=== PATIENT | female | born 1965 | race Caucasian/White ===

== ENCOUNTER 2022-12-20 14:17 | Outpatient (CLI) | payer BC, SELFPAY ==
[2022-12-20 17:32] LABS: Chloride* 101 mmol/L (96-114); Potassium* 3.4 mmol/L (3.6-5.1); Sodium* 137 mmol/L (135-149)
[2022-12-20 17:34] LABS: Cholesterol* 130 mg/dL (90-199); Creatinine* 0.7 mg/dL (0.5-1.5); Estimated Glomerular Filt Rate 100 ml/min
[2022-12-20 17:35] LABS: Blood Urea Nitrogen* 16 mg/dL (7-30); Calcium* 9.4 mg/dL (8.4-10.6); Carbon Dioxide* 28 mmol/L (20-32); Glucose* 147 mg/dL (60-115); Triglycerides* 220 mg/dL (40-149)
[2022-12-20 17:36] LABS: HDL Cholesterol* 37 mg/dL (>=50); LDL Cholesterol Calculated 49 mg/dL (<100)
[2022-12-20 18:00] LABS: Thyroid Stimulating Hormone* 0.585 uIU/mL (0.270-4.20)
== END 2022-12-20 14:18 | disposition home or self-care (01) ==
PROVIDERS: PCP Family Medicine; Visit Provider Family Medicine
DX: I10 Essential (primary) hypertension (principal); E78.5 Hyperlipidemia, unspecified; E03.9 Hypothyroidism, unspecified; E21.3 Hyperparathyroidism, unspecified
CPT/HCPCS: 80048; 80061; 82310; 83970; 84443

== ENCOUNTER 2023-05-15 14:55 | Outpatient (CLI) | payer BC, SELFPAY ==
--- NOTE | 2023-05-15 15:20 | CRLHL7_ITS ---
For Patients: As a result of the Century Cures Act, medical imaging exams and procedure reports are released immediately into your electronic medical record. You may view this report before your referring provider. If you have questions, please contact your health care provider. BILATERAL SCREENING MAMMOGRAM WITH COMPUTER-AIDED DETECTION AND TOMOSYNTHESIS TECHNIQUE: CC and MLO views were obtained. These mammographic images have been obtained using full-field digital technique. These mammographic images were interpreted with the benefit of computer-aided detection. Breast Tomosynthesis was used in this interpretation. COMPARISON FILM: 12/20/21, 11/09/20. FINDINGS: There are scattered areas of fibroglandular density IMPRESSION: There is no radiographic evidence for malignancy. ASSESSMENT: BI-RADS Category 1: Negative RECOMMENDATION: Routine screening mammogram in 1 year. A lay language report of this examination will be provided to the patient. Segun George M.D. Diagnostic Radiologist [email or web address] MARTITA/Dictated by: Segun George MD @ 05/23/2023 8:20:00 AM (Electronically Signed)
== END 2023-05-15 14:56 | disposition home or self-care (01) ==
LOC: MAMMO 14:56
PROVIDERS: PCP Family Medicine; Visit Provider Obstetrics & Gynecology
DX: Z12.31 Encounter for screening mammogram for malignant neoplasm of breast (principal)
CPT/HCPCS: 77063; 77067

== ENCOUNTER 2023-09-12 13:55 | Outpatient (CLI) | payer BC, SELFPAY | END 2023-09-12 13:56 | disposition home or self-care (01) | PROVIDERS: PCP Family Medicine; Visit Provider Family Medicine | DX: Z01.818 Encounter for other preprocedural examination (principal); E53.8 Deficiency of other specified B group vitamins; E11.9 Type 2 diabetes mellitus without complications; E78.2 Mixed hyperlipidemia; E66.9 Obesity, unspecified; E03.9 Hypothyroidism, unspecified; I10 Essential (primary) hypertension | CPT/HCPCS: 80048; 80061; 82607; 84443 ==

== ENCOUNTER 2023-09-23 09:20 | Day surgery (SDC) | payer BC, SELFPAY ==
[2023-09-23] VITALS (19 sets, daily range): BP systolic 109–148; BP diastolic 67–86; PULSE 69–106; RESP 14–20; TEMP 36.3–37.3; O2SAT 95–100; BMI 26.1
[2023-09-23 09:54] LABS: Hemoglobin* 13.3 gm/dL (12.0-16.0)
[2023-09-23 10:08] LABS: Creatinine* 0.7 mg/dL (0.5-1.5); Est. Creatinine Clearance* 87.29; Estimated Glomerular Filt Rate 100 ml/min
--- NOTE | 2023-09-23 10:13 | P.PCN_ITS ---
Procedure Note Time Seen by Provider: 13:59 Date Seen: 09/23/23 Date of procedure: 09/23/23 Will [facility] bill your pro fee for this procedure?: Yes Procedure: Preoperative diagnosis: 58-year-old 2 para 2 with uterine prolapse and rectocele. Postoperative diagnosis: Same Procedure: Total laparoscopic hysterectomy, bilateral salpingo oophorectomy, lysis of adhesions, posterior (rectocele) repair, diagnostic cystoscopy. Anesthesia: General endotracheal, local Surgeon: Shraddha Benson MD Assist: Rosalie Ruelas MD Estimated blood loss: 100 mL. IV Fluid: 2000 mL Urine output: 450 mL clear urine at the end of the procedure Drains: Adam to gravity Specimen: Uterus, bilateral fallopian tubes and bilateral ovaries to pathology. Findings: On exam under anesthesia: The uterus was anteverted, approximately 8 week size, mobile without nodularity or masses palpable. Grade 2-3 uterine prolapse, grade 3-4 cystocele. After the uterus was removed and the vaginal cuff repaired was noted to have a grade 3 rectocele with a small enterocele. No remaining cystocele after hysterectomy. Adnexa without mass or fullness palpable. On laparoscopy: Normal appearing uterus, fallopian tubes, and ovaries. Appendix and liver edge appeared normal. Procedure: May was taken to the operating room where general anesthetic was found to be adequate. She was placed in the dorsal lithotomy position and an exam under anesthesia was performed with findings stated above. She was then prepped and draped in a normal sterile manner. A Adam catheter was placed. A bivalve speculum was placed in the vaginal canal. A long Allis clamp was placed on the anterior lip of the cervix, in the uterus sounded to 8 cm. A extra large VCare uterine manipulator was then placed. The Allis clamp and speculum were removed from the cervix. Attention was then turned to performing the laparoscopic portion of the procedure. All incisions were infiltrated with 0.50% Marcaine prior to incising the skin. A vertical, infraumbilical 1 cm incision was made. An 11 mm trocar was then placed under direct visualization. The abdomen was then insufflated with CO2 gas to a pressure of 15 mm of mercury. Two, pelvic ports were then placed approximately 3-4 finger breaths medial to the ischial crests. The trocar in the RLQ = 5mm, LLQ = 11mm. These were placed under direct visualization. Attention was then turned to performing the hysterectomy. The right ureter was visualized in the normal position prior to start of the procedure. The sigmoid colon was adherent to the left pelvic sidewall and colonic adipose tissue made it impossible to visualize the left ureter. The left infundibulo-pelvic ligament identified and doubling cauterized and divided with the PowerSeal dissecting forceps. Additional pedicles with formed and ligated using the dissecting, PowerSeal blunt tip dissecting forceps. The left side of the hysterectomy was performed using the PowerSeal dissecting forceps. The 1st pedicles were starting with the broad ligament that was cauterized and and bisected. In sequence show pedicles were formed to divide the utero-ovarian ligament. Then sequential pedicles were made through the broad ligament. The posterior leaf of the broad ligament was then divided and sequential pedicles carried down to the level of the VCare cup. The anterior leaf of the broad ligament was then divided down to the level of the anterior aspect of the VCare cup and a bladder flap created. The uterine vessels were then skeletonized. The uterine vessels were then cauterized and divided. Then excess tissue was cleared over the top of the VCare cup using the dissecting forceps. The right salpingo-oophorectomy and right side of the hysterectomy were then performed in a similar manner. The Ligasure Valleylab pen with the spatula attachment was then used to perform the colpotomy incising around the VCare cup. The uterus was removed and the fundus placed in the vaginal canal to maintain insufflation. The vaginal cuff was then reapproximated using 2-0 V lock suture in a running manner. All the pedicles and vaginal cuff were then closely visualized and hemostasis obtained with bipolar cautery using the PowerSeal dissecting forceps or the Cyveralab pen with the spatula. The the uterus, tubes and ovaries were removed from the vaginal canal and sent to pathology. The Adam catheter was briefly removed. A diagnostic cystoscopy was performed using normal saline as the insufflation medium. The dome of the bladder was noted to be without injury and no evidence of any sutures from the vaginal cuff causing injury. Normal urine flow was noted through both ureteral orifices. Fluorescein IV was used to visualize the urine more easily. The Adam catheter was then replaced. Attention was then returned to the abdomen where hemostasis was verified. The CO2 pressure decreased to 8mmHG and hemostasis verified. The fascia in the LLQ incision was approximated with 0-Vicryl suture using the Vj Thomasen fascial closure device. This was closed under direct visualization with the laparoscope. The fascia in the umbilical incision was reapproximated using 0 Vicryl on a UR 6 needle. All trocars were removed under direct visualization. CO2 gas was allowed to escape the infraumbilical port prior to its removal. All skin incisions were re-approximated using 4-0 Monocryl in a running subcuticular manner, Exofin skin adhesive gel and adhesive bandages placed. Attention was turned to performing the posterior repair. An Allis clamp was placed at the apex of the posterior repair in the midline of the vaginal mucosa posteriorly, 2 Allis clamps were placed in the posterior introitus approximately 1 cm within the introitus. 1% lidocaine with epinephrine was instilled between the 2 horizontal clamps and in the midline to the apical clamp. A horizontal incision was made between the 2 most proximal Allis clamps and a horizontal midline incision was made from the apex clamp to the midline horizontal incision. The vaginal mucosa was then undermined with Metzenbaum scissors and the vaginal fascia was mobilized from the mucosa using a Ray-Matt sponge. The lateral vaginal fascia was then reapproximated using 2 0 Vicryl interrupted sutures. The excess mucosal tissue was removed and the remaining incision reapproximated using 3-0 Vicryl in a running locked manner. Hemostasis verified . A vaginal pack was placed. The patient tolerated this procedure well. Sponge, lap and instrument counts were correct x2 at the end of the procedure and the patient was taken to the recovery area in stable condition. The patient received 2 gm IV ancef prior to the start of the procedure. Anesthesia: GETA and local Surgeon: Shraddha Benson MD Private Eye: Rosalie Ruelas Estimated blood loss (mL): 100 IV fluids (mL): 2,000 Urine output (mL): 450 Pathology: specimen obtained, sent to pathology Condition: stable Disposition: PACU
--- NOTE | 2023-09-23 10:20 | W.PM.H&PU ---
History & Physical Update History & Physical Update H&P Reviewed and patient assessed: No changes noted
[2023-09-23] MEDS: SODIUM CHLORIDE 0.9 % (FLUSH) 10 ML SYRINGE IVF (10:30)
[2023-09-23] MEDS: LACTATED RINGERS 1000 ML 1,000 ML 100 ML IV ×3 (10:30→13:48)
[2023-09-23] MEDS: CEFAZOLIN 2 GM INJ IVP (11:20)
--- NOTE | 2023-09-23 11:26 | W.ANESCHARGE ---
Anesthesia Charges Start Date/Time Anesthesia Start Date: 09/23/23 Anesthesia Start Time: 11:08 Stop Date/Time Anesthesia Stop Date: 09/23/23 Anesthesia Stop Time: 14:20
--- NOTE | 2023-09-23 11:26 | W.PM.NB ---
Nerve Block Nerve Block Time Seen by Provider: 11:12 Date Seen: 09/23/23 Type of block requested by surgeon for post-operative analgesia: TAP Side: bilateral Time out performed: Yes Verification of patient name: Yes Verification of date of : Yes Site marking: site marked Name of person performing procedure: Karel Continuous monitoring Was continuous monitoring of O2 sat, B/P, vice president research, recorded every 15 minutes?: Yes Procedure Checklist: sterile prep, needles and gloves Ultrasound guided. Images saved: Yes Medications given in 5ml increments after negative aspiration: Marcaine %: 0.25 mL: 30 Needle gauge: 20 and Exparel mL: 10 Patient tolerated procedure well: Yes Additional comments: Needle noted adjacent to nerve Block Charges Block Charge (with Pro Fee): TAP Bilateral Use of Ultrasound Machine for Block: Yes- US Guidance/pain block
[2023-09-23] MEDS: BUPIVACAINE 0.5% 30 ML INJECTION (11:46)
[2023-09-23] MEDS: LACTATED RINGERS 1000 ML 1,000 ML 125 ML IV (13:48)
--- NOTE | 2023-09-23 14:07 | SUR.OPER ---
urinary catheter charted removed in OR accidentally, ray catheter reactivated at end of case
--- NOTE | 2023-09-23 14:23 | W.ANESCHARGE ---
Anesthesia Charges Start Date/Time Anesthesia Start Date: 09/23/23 Anesthesia Start Time: 11:08 Stop Date/Time Anesthesia Stop Date: 09/23/23 Anesthesia Stop Time: 14:20
[2023-09-23] MEDS: HYDROmorphone 0.5 mg/0.5 ml inj IVP (15:38)
[2023-09-23] MEDS: KETOROLAC 30 MG/ML inj IVP (20:10)
[2023-09-23] MEDS: MONTELUKAST 10 MG TABLET PO (21:31)
[2023-09-23] MEDS: ATORVASTATIN 10 MG TABLET 20 MG PO (21:31)
[2023-09-24] VITALS: BP 123/71; PULSE 106; RESP 14; TEMP 37; O2SAT 93
[2023-09-24] MEDS: KETOROLAC 30 MG/ML inj IVP ×2 (02:04→07:57)
[2023-09-24 04:44] VITALS: BP 110/67; PULSE 92; RESP 16; TEMP 36.8; O2SAT 94
[2023-09-24] MEDS: ACETAMINOPHEN 500 MG TABLET 1000 MG PO ×2 (04:54→10:54)
--- NOTE | 2023-09-24 07:31 | SUR.OPER ---
Estrogen Cream applied to vaginal packing on 09/23/[address] Benson. Unable to document in JAN, billed by pharmacy.
[2023-09-24 07:41] VITALS: BP 124/74; PULSE 89; RESP 16; TEMP 36.9; O2SAT 98
[2023-09-24] MEDS: LEVOTHYROXINE 75 MCG TABLET PO (07:58)
[2023-09-24] MEDS: hydroCHLOROthiazide 12.5 MG CAPSULE PO (07:58)
[2023-09-24] MEDS: LORATADINE 10 MG TABLET PO (07:59)
[2023-09-24] MEDS: LOSARTAN POTASSIUM 50 MG TABLET 100 MG PO (07:59)
--- NOTE | 2023-09-24 08:25 | PC.NURSE ---
Vaginal packing removed by . Patient tolerated well.
--- NOTE | 2023-09-24 08:32 | PM.GYNDS1 ---
DS: Providers Provider Time Seen by Provider: 08:15 Date Seen: 09/24/23 Date of admission: 09/23/23 Primary care physician: Segun Brown MD Admitting Clinician: Shraddha Benson MD Attending Physician on discharge: Rosalie Ruelas MD Date of Discharge: 09/24/23 DS: Diagnosis Discharge Diagnosis (1) S/P hysterectomy with oophorectomy: Status: Acute Problem details: TLH, BSO with diagnostic cystoscopy and rectocele repair CONSTRUCTION HELPER-Discharge Summary Hospital Course Hospital Course Narrative: Patient is a 58 year old admitted on 09/23/23 following total laparoscopic hysterectomy, bilateral salpingo oophorectomy, diagnostic cystoscopy, and rectocele repair. Indication for surgery: Uterine prolapse and rectocele. Intraoperative findings were notable for: Exam under anesthesia demonstrated 8 week size uterus with good mobility, grade 2-3 uterine prolapse, and a grade 3-4 cystocele. After the uterus was removed, examination revealed no evidence of cystocele, grade 3 rectocele and a small enterocele. On laparoscopy, uterus, fallopian tubes, ovaries, and appendix were all normal in appearance. She had an uncomplicated surgery. Postoperative course has been uneventful. Vitals have been stable. She has remained afebrile. Today, on postoperative day 1, she reports the pain is well controlled without narcotics. She has been able to ambulate without difficulty. She has had a little bit of right shoulder discomfort. She is tolerating regular diet. She is passing flatus. Adam catheter has been removed, and she is voiding without difficulty. Had a small amount of perineal discomfort with wiping. Time Spent with Patient Time attestation: Total time spent providing and/or coordinating discharge services: Time spent: Less than 30 minutes CONSTRUCTION HELPER - Exam Physical Exam: Vital signs: Temp Pulse Resp BP Pulse Ox O2 Del Method 98.5 F 89 16 124/74 98 Room Air 09/24/23 07:41 09/24/23 07:41 09/24/23 07:41 09/24/23 07:41 09/24/23 07:41 09/24/23 07:41 Constitutional: Constitutional: no acute distress Routine HEENT Exam: Head: Present normal inspection Routine Neck Exam: NECK: Present supple Routine Respiratory Exam: Respiratory: Present CTA bilaterally; Absent crackles, rhonchi or wheezes Routine Cardiovascular Exam: Cardiovascular: Present RRR; Absent murmur Routine Abdominal Exam: Abdominal: Present normal bowel sounds and soft; Absent distended or tenderness Comments: Laparoscopic incision sites are clean, dry, and intact, without erythema or ecchymoses. Routine Exam: Comments: Perineal repair is intact. No erythema or swelling noted. Vaginal packing was removed without difficulty. Routine Extremities Exam: Extremities: Present normal inspection; Absent calf tenderness or pedal edema Routine Psychiatric Exam: Psychiatric: Present normal affect CONSTRUCTION HELPER - DS: Data Data Completed and Pending Labs on day of discharge: Labs from last 24 hours 09/23/23 09:44 Hgb 13.3 Creatinine 0.7 Estimated Creat Clear 87.29 Estimated GFR 100 Blood Type O Positive Antibody Screen NEGATIVE Procedures Procedures: Procedures Operation Date: 09/23/23 10:20 Actual Procedure Side Surgeon p Laparoscopic Hysterectomy, Bilateral Salpingo-Oophorectomy, lysis of adhesions, diagnostic Cystoscopy Bilateral Shraddha Benson MD s Repair Rectocele Not Applicable Shraddha Benson MD Discharge Plan Discharge Disposition: Home, Self-Care Discharging Surgeon: Rosalie Ruelas Follow-Up Appointment: With Shraddha Womakc in 2-3 wks and a 2nd postop check in 5-6wks. Prescriptions: New ibuprofen 600 mg Tablet 600 mg PO Q6H PRN (Reason: Pain) Qty: 30 0RF oxycodone 5 mg Tablet 5 mg PO 3XD PRN (Reason: 4 OR GREATER ON PAIN SCALE) Qty: 21 0RF docusate sodium 100 mg tablet 100 mg PO BID PRNQty: 100 0RF Continued bimatoprost 0.03 % drops with applicator 1 drp topical QDAY Patient Comments: INSTILL 1 DROP INTO BOTH EYES IN THE EVENING (NOT COVERED) omega-3 acid ethyl esters 1 gram capsule 1 cap PO BID Patient Comments: TAKE 2 CAPSULES BY MOUTH 2 TIMES DAILY mometasone 0.1 % cream 1 applic topical QDAY loratadine [Claritin] 10 mg tablet 10 mg PO QDAY Women's Multivitamin 18 mg-400 mcg- 500 mg-50 mcg tablet PO tretinoin 0.025 % cream topical hydrochlorothiazide 25 mg tablet 12.5 mg PO QDAY potassium gluconate 595 mg (99 mg) tablet 595 mg PO QHS calcium citrate-vitamin D3 [Citracal-D3 Petites] 200 mg-6.25 mcg (250 unit) tablet 2 tab PO BID Total Restore 3 cap PO QDAY fluticasone propionate [Flonase Allergy Relief] 50 mcg/actuation spray,suspension 1 spray intranasal QDAY Qty: 16 5RF Rx Instructions: administer into each nostril Ozempic 0.25 mg or 0.5 mg (2 mg/3 mL) pen injector 0.25 mg subcut QWEEK Qty: 3 1RF Rx Instructions: for 4 weeks then increase to 0.5 mg weekly levothyroxine [Synthroid] 75 mcg tablet 75 mcg PO QDAY Qty: 90 3RF montelukast 10 mg tablet 10 mg PO QDAY Qty: 90 3RF losartan 100 mg tablet 100 mg PO QDAY Qty: 90 3RF atorvastatin 20 mg tablet 20 mg PO QPM Qty: 90 3RF lorazepam [Ativan] 1 mg tablet 1 mg PO QDAY PRN (Reason: anxiety) Qty: 2 0RF Rx Instructions: Take 1 tablet at bedtime the night prior to the procedure and 1 tablet the day of the procedure. Activity Level: Other Discharge Diet: Regular Patient Instructions: Laparoscopic Hysterectomy (DC) Additional Instructions: ACTIVITY RESTRICTIONS: - Nothing vaginally for 6 weeks: no tampons/intercourse - No driving while taking narcotic pain medication during the day. 1-2 weeks. - Lifting restriction: Maximum of 20 pounds for 2-3 weeks. - High impact or core exercises: 3 weeks. - Submerge the incisions in water (bath/pool/lynn): 2 weeks. - Off of work/school for a minimum of 4 weeks NO RESTRICTIONS for: - Walking - Going up/down stairs - Showering - Passenger in a car. Symptoms to report to your doctor - Bleeding that is red, like a moderate period - Passing clots larger than the size of a golf ball - Pain not relieved by prescribed medication - Fever above 100.4 degrees Fahrenheit - A foul vaginal odor - Decrease in urination or painful, frequent urinating - Chest pain - Shortness of breath - Tenderness or pain with redness and/swelling in the calf(s) of your leg Follow-up Appointments: [facility]. [facility] for an incision check. 2. A 6 week postop visit to verify that the vaginal canal is well-healed. Forms: Work/School Release Follow-up: Shraddha Benson MD [Staff Physician] - Segun Brown MD [Primary Care Provider] - Discharge Orders: Discharge Order (Routine); Ordered 09/24/23 Ordered By: Rosalie Ruelas
--- NOTE | 2023-09-24 09:13 | P.GYNPRC_ITS ---
Procedure Note Date of procedure: 09/23/23 Procedure Description: PREOPERATIVE DIAGNOSIS: 58-year-old 2 para 2 with uterine prolapse and rectocele. POSTOPERATIVE DIAGNOSIS: Same PROCEDURE: Total laparoscopic hysterectomy, bilateral salpingo oophorectomy, lysis of adhesions, posterior (rectocele) repair, diagnostic cystoscopy. SURGEON: Agata Mak DIPPER AND DRIER: Suraj ANESTHESIA: General endotracheal COMPLICATIONS: None ESTIMATED BLOOD LOSS: See operative report by Dr. Benson FINDINGS: See operative report by Dr. Benson PROCEDURE NOTE: Please see the operative report by Dr. Benson for full details of the procedure. I was asked to assist. I was scrubbed in for the e ntire procedure until closure of the vaginal mucosa following the posterior repair. I provided assistance with laparoscopic port placement, lysis of adhesions, visualization and retraction during the hysterectomy and posterior repair, and with the hysterectomy and bilateral salpingectomies from the right side, hemostasis and closure of the vaginal cuff, and abdominal port site incision closures.
== END 2023-09-24 11:00 | disposition home or self-care (01) ==
LOC: OR 09:21 → OB 09:24
PROVIDERS: PCP Family Medicine; Visit Provider Obstetrics & Gynecology
PROC: 0UT9FZZ Resection of Uterus, Via Natural or Artificial Opening With Percutaneous Endoscopic Assistance (ICD-10-PCS; CPT 58571; principal; 2023-09-23 10:00)
PROC: (CPT 57260; 2023-09-23 10:00)
DX: N81.3 Complete uterovaginal prolapse (principal); N73.6 Female pelvic peritoneal adhesions (postinfective); G89.18 Other acute postprocedural pain; N88.8 Other specified noninflammatory disorders of cervix uteri; D25.1 Intramural leiomyoma of uterus; N83.8 Other noninflammatory disorders of ovary, fallopian tube and broad ligament; N83.299 Other ovarian cyst, unspecified side; D28.2 Benign neoplasm of uterine tubes and ligaments
CPT/HCPCS: 58571; 57250; 49329; 00840; 36415; 64488; 76942; 82565; 82962; 85018; 86850; 86900; 86901; 88307; A9270; C9290; J0330; J0665; J0690; J1100; J1170; J1885; J2250; J2371; J2405; J2704; J2710; J3010; J3475; J7120